=== PATIENT | male | born 1960 | race Caucasian/White ===

== ENCOUNTER → 2017-04-22 | Outpatient (CLI) | payer BC ==
[~2017-04-22] MED LIST: ALPR0.5T PO; CYAN100053 IJ; ENAL1TAB19 PO; ENLP10T PO; HYDR-3714 PO; OXC5T PO; TESTOSTERONE CMPD TOP
== END ==
LOC: CARD 06:52
PROVIDERS: ATTEND Internal Medicine
DX: R53.83 Other fatigue (principal)

== ENCOUNTER 2017-07-26 01:00 | Outpatient (CLI) | payer BC ==
[~2017-07-26] VITALS: Ht 175.3 cm; Wt 81.2 kg
[2017-07-26] MEDS ORDERED: LOSA100T28 PO (09:52)
[2017-07-26] MEDS ORDERED: ZALE10CA PO (09:52)
[2017-07-26] MEDS ORDERED: CETI10TA17 PO (09:52)
[2017-07-26] MEDS ORDERED: AMLO2.5T PO (09:52)
== END 2017-07-26 13:07 ==
LOC: PREOP 01:00
PROVIDERS: ATTEND Surgery
DX: Z01.818 Encounter for other preprocedural examination (principal); K21.9 Gastro-esophageal reflux disease without esophagitis; K92.1 Melena

== ENCOUNTER 2017-07-31 09:05 | Day surgery (SDC) | payer BC ==
[~2017-07-31] VITALS: Ht 175.3 cm; Wt 81.2 kg
[~2017-07-31 09:05] MED LIST changes: +AMLO2.5T PO; +CETI10TA17 PO; +LOSA100T28 PO; +ZALE10CA PO
--- OUTSIDE RECORDS SUMMARY | 2017-07-31 09:08 | XMS REPORT | Continuity of Care Document ---
Author Author [facility] Organization [facility] Address Unknown Phone Unavailable Allergies Active Description Code Type Severity Reaction Onset Reported/Identified Relationship to Patient Clinical Status Yes oxycodone [id number] Drug Allergy Mild ITCHING IF TAKE 05/12/2014 Yes ciprofloxacin [id number] Drug Allergy Unknown VOMITING 07/15/2014 Yes Penicillins [id number] Drug Allergy Unknown RASH 07/15/2014 Medications There is no data. Problems Date Dx Coded Attending Type Code Diagnosis Diagnosed By 05/21/2014 RAJEEV POTTER DPM Ot 355.6 PLANTAR NERVE LESION 05/21/2014 RAJEEV POTTER DPM Ot 735.8 ACQ DEFORMITY OF TOE NEC 07/23/2014 NAHUM CORNEJO SOCIOLOGY RESEARCH ASSISTANT Ot 401.9 07/23/2014 NAHUM CORNEJO SOCIOLOGY RESEARCH ASSISTANT Ot 729.5 07/23/2014 ABBEY DPRAJEEV Duarte Ot 355.6 07/23/2014 RAJEEV POTTER DPM Ot 735.8 07/23/2014 RAJEEV POTTER DPM Ot V72.84 07/23/2014 RAJEEV POTTER DPM Ot 355.6 07/23/2014 RAJEEV POTTER DPM Ot 735.8 07/23/2014 RAJEEV POTTER DPM P Ot V72.83 07/23/2014 RAJEEV POTTER DPM P Ot 355.6 PLANTAR NERVE LESION 07/23/2014 RAJEEV POTTER DPM P Ot 735.8 ACQ DEFORMITY OF TOE NEC 04/18/2017 NAHUM CORNEJO SOCIOLOGY RESEARCH ASSISTANT Ot 401.9 HYPERTENSION NOS 04/18/2017 NAHUM CORNEJO SOCIOLOGY RESEARCH ASSISTANT Ot 729.5 PAIN IN LIMB 04/18/2017 ABBEY DPRAJEEV Duarte Ot 355.6 PLANTAR NERVE LESION 04/18/2017 ABBEY DPRAJEEV Duarte P Ot 735.8 ACQ DEFORMITY OF TOE NEC 04/18/2017 POTTER DPM, RAJEEV P Ot V72.84 EXAM PRE-OPERATIVE NOS 04/18/2017 POTTER DPM, RAJEEV P Ot 355.6 PLANTAR NERVE LESION 04/18/2017 POTTER DPM, RAJEEV P Ot 735.8 ACQ DEFORMITY OF TOE NEC 04/18/2017 POTTER DPM, RAJEEV P Ot V72.83 EXAM PRE-OPERATIVE NEC 04/18/2017 NAHUM CORNEJO SOCIOLOGY RESEARCH ASSISTANT Ot 401.9 HYPERTENSION NOS 04/18/2017 CORNEJONAHUM KRUSE SOCIOLOGY RESEARCH ASSISTANT Ot 729.5 PAIN IN LIMB 04/18/2017 POTTER DPM, RAJEEV P Ot 355.6 PLANTAR NERVE LESION 04/18/2017 POTTER DPM, RAJEEV P Ot 735.8 ACQ DEFORMITY OF TOE NEC 04/18/2017 POTTER DPM, RAJEEV P Ot V72.84 EXAM PRE-OPERATIVE NOS 04/18/2017 POTTER DPM, RAJEEV P Ot 355.6 PLANTAR NERVE LESION 04/18/2017 POTTER DPM, RAJEEV P Ot 735.8 ACQ DEFORMITY OF TOE NEC 04/18/2017 POTTER DPM, RAJEEV P Ot V72.83 EXAM PRE-OPERATIVE NEC 04/19/2017 NAHUM CORNEJO SOCIOLOGY RESEARCH ASSISTANT Ot 401.9 HYPERTENSION NOS 04/19/2017 CORNEJONAHUM KRUSE SOCIOLOGY RESEARCH ASSISTANT Ot 729.5 PAIN IN LIMB 04/19/2017 POTTER DPM, RAJEEV P Ot 355.6 PLANTAR NERVE LESION 04/19/2017 POTTER DPM, RAJEEV P Ot 735.8 ACQ DEFORMITY OF TOE NEC 04/19/2017 POTTER DPM, RAJEEV P Ot V72.84 EXAM PRE-OPERATIVE NOS 04/19/2017 POTTER DPM, RAJEEV P Ot 355.6 PLANTAR NERVE LESION 04/19/2017 POTTER DPM, RAJEEV P Ot 735.8 ACQ DEFORMITY OF TOE NEC 04/19/2017 POTTER DPM, RAJEEV P Ot V72.83 EXAM PRE-OPERATIVE NEC 04/24/2017 JOCELYN CORNEJO DO Ot R53.83 OTHER FATIGUE Procedures There is no data. Results There is no data. Encounters ACCT No. Visit Date/Time Discharge Status Pt. Type Provider Facility Loc./Unit Complaint [id number] 04/22/2017 06:52:00 04/22/2017 23:59:59 CLS Outpatient JOCELYN CORNEJO DO [facility] CARD R53.83 [id number] 07/23/2014 06:07:00 07/23/2014 12:00:00 DIS Outpatient RAJEEV POTTER DPM [facility] HALLUX LIMIT; NEUROMA THIRD INTERSPACE RIGHT FOOT [id number] 07/15/2014 08:00:00 07/15/2014 23:59:59 CLS Outpatient RAJEEV POTTER DPM [facility]; NEUROMA THIRD INTERSPACE RIGHT FOOT [id number] 05/21/2014 06:12:00 05/21/2014 11:20:00 DIS Outpatient RAJEEV POTTER DPM [facility] HALLUX LIMIT; NEUROMA THIRD INTERSPACE LEFT FOOT [id number] 05/12/2014 10:39:00 05/12/2014 23:59:59 CLS Outpatient RAJEEV POTTER DPM [facility] LIMIT; NEUROMA THIRD INTERSPACE LEFT FOOT [id number] 08/25/2013 06:58:00 08/25/2013 23:59:59 CLS Outpatient NAHUM CORNEJO [facility] RAD HTN,LEFT ARM PAIN
--- OUTSIDE RECORDS SUMMARY | 2017-07-31 09:08 | XMS REPORT | Clinical Summary ---
Author Author [facility] Organization [facility] Address Unknown Phone Unavailable Care Team Providers Care Appointment Manager Name Role Phone PCP Unavailable Source Comments Some departments are not documenting in the electronic medical record. If you do not see the information that you expected, contact Release of Information in the Health Information Management department at [phone] for further assistance in locating additional records.[facility] Allergies Active Allergy Reactions Severity Noted Date Comments Ciprofloxacin DELUSIONS High 08/22/2011 Hallucinations Morphine AGITATION High 08/22/2011 " makes me crazy" Penicillins EDEMA Low 08/13/2011 Lips swell Current Medications Prescription Sig. Disp. Refills Start End Date Status Date finasteride (PROPECIA) 1 Take 1 mg by mouth daily. Active mg tablet enalapril (VASOTEC) 5 mg Take 5 mg by mouth daily. Active tablet ALPRAZolam (XANAX) 1 mg Take 1 mg by mouth at Active tablet bedtime as needed. vitamin E 100 unit Cap Take 100 Units by mouth Active daily. Potassium 99 mg Tab Take 1 Tab by mouth Active daily. vitamins, multiple Cap Take 1 Cap by mouth Active daily. HYDROcodone/acetaminophen Take 1-2 Tabs by mouth 40 Tab 0 08/23/19 Active (VICODIN) 5/500 mg tablet every 6 hours as needed 12 for Pain. docusate (COLACE) 100 mg Take 1 Cap by mouth twice 60 Cap 2 08/23/19 Active capsule daily. 12 Active Problems Not on file Family History Medical History Relation Name Comments Cancer Father Pancreatic CA Relation Name Status Comments Father Mother Alive Social History Tobacco Use Types Packs/Day Years Used Date Former Smoker Cigarettes 0.25 5 Quit: 08/05/1998 Alcohol Use Drinks/Week oz/Week Comments Yes 4 Cans of 2.4 beer Sex Assigned at Date Recorded Not on file Last Filed Vital Signs Vital Sign Reading Time Taken Blood Pressure 128/92 08/23/2011 9:18 AM STEREO OPERATOR Pulse 70 08/23/2011 9:18 AM STEREO OPERATOR Temperature 36.9 C (98.4 F) 08/23/2011 9:18 AM STEREO OPERATOR Respiratory Rate - - Oxygen Saturation 99% 08/23/2011 9:18 AM STEREO OPERATOR Inhaled Oxygen - - Concentration Weight 78 kg (172 lb) 08/22/2011 9:15 AM STEREO OPERATOR Height 175.3 cm (5' 9") 08/22/2011 9:15 AM STEREO OPERATOR Body Mass Index 25.4 08/22/2011 9:15 AM STEREO OPERATOR Plan of Treatment Health Maintenance Due Date Last Done Comments HEPATITIS C SCREENING 1962 PHYSICAL (COMPREHENSIVE) 1969 EXAM PERTUSSIS VACCINE 1973 TETANUS VACCINE 1979 COLORECTAL CANCER 2012 SCREENING INFLUENZA VACCINE 03/05/2017 Results Not on filefrom Last 3 Months
[2017-07-31] MEDS ORDERED: NS IV 500 ML 500 ML IV PRN (09:10)
[2017-07-31 09:15] VITALS: BP 121/81
[2017-07-31] MEDS ORDERED: HURRICAINE EXT TUBE (BENZOCAINE) XX PRN (09:30)
[2017-07-31] MEDS ORDERED: NS IV 500 ML 500 ML ONE (09:35)
--- NOTE | 2017-07-31 11:37 | Conscious Sedation/ASA ---
Conscious Sedation Pre-Proced Time Reviewed: 11:00 ASA Class: 2 Airway Mallampati Classification: ([place] appropriate class) I. II. III, IV Lungs Heart ASA score ASA 1: a normal healthy patient ASA 2: a patient with a mild systemic disease (mid diabetes, controlled hypertension, obesity ASA 3: a patient with a severe systemic disease that limits activity (angina , COPD, prior Myocardial infarction) ASA 4: a patient with an incapacitating disease that is a constant threat to life (CHF, renal failure) ASA 5: a moribund patient not expected to survive 24 hrs. (ruptured aneurysm) ASA 6: a declared brain patient whose organs are being harvested. For emergent operations, add the letter E after the classification Grade 2 Sedation Plan: Analgesia, Amnesia, Plan communicated to team members, Discussed options with patient/fam, Discussed risks with patient/fam Note The patient is an appropriate candidate to undergo the planned procedure, sedation, and anesthesia. The patient immediately re-assessed prior to indication. FEDE SANTILLAN MD Jul 31, 2017 11:37 am
[2017-07-31] MEDS ORDERED: LIDOCAINE JELLY 2% (XYLOCAINE) 5 ML TUBE ONE (11:38)
[2017-07-31] MEDS ORDERED: fentaNYL INJECTION 100 MCG/2 ML AMP ONE ×2 (11:38)
--- NOTE | 2017-07-31 11:38 | Progress Note-Pre Operative ---
Pre-Operative Progress Note H&P Reviewed The H&P was reviewed, patient examined and no changes noted. Date Seen by Provider: Jul 31, 2017 Time Seen by Provider: 11:00 Date H&P Reviewed: Jul 31, 2017 Time H&P Reviewed: 11:00 Pre-Operative Diagnosis: rectal bleed, GERD FEDE SANTILLAN MD Jul 31, 2017 11:38 am
[2017-07-31] MEDS ORDERED: MIDAZOLAM 2 MG/2 ML (VERSED) VIAL ONE ×7 (11:39→12:12)
[2017-07-31] MEDS ORDERED: HURRICAINE EXT TUBE (BENZOCAINE) ONE (11:39)
[2017-07-31] MEDS: fentaNYL INJECTION 100 MCG/2 ML AMP IVP PRN ×4 (11:41→12:25)
[2017-07-31] MEDS ORDERED: PANT40TA2 PO (11:45)
[2017-07-31] MEDS ORDERED: ACETAMINOPHEN 325 MG TABLET/CAPLET (TYLENOL) PO PRN (11:45)
[2017-07-31] MEDS ORDERED: HYDROcodone/APAP 5 MG/325 MG (LORTAB) TAB PO PRN (11:45)
[2017-07-31] MEDS ORDERED: morphine INJ 10 MG/ML 1ML (SYR OR VIAL) IV PRN (11:45)
[2017-07-31] MEDS ORDERED: ONDANSETRON 4 MG/2 ML (SDV) Z0FRAN IV PRN (11:45)
--- NOTE | 2017-07-31 11:46 | Discharge Inst-Surgical ---
D/C Lap Instructions-KIDO New, Converted, or Re-Newed RX: RX on Chart Follow Up PRN Activity as tolerated High Fiber Diet 25g or more per day Avoid Alcohol, Caffeine, Spicy [place] and Acid foods. Drink 64 fluid oz or more of fluids per day. Symptoms to Report: Fever over 101 degree F, Nausea/Vomiting If any problems/questions: Contact your physician or go to Emergency Room FEDE SANTILLAN MD Jul 31, 2017 11:46 am
[2017-07-31] MEDS: MIDAZOLAM 2 MG/2 ML (VERSED) VIAL IVP PRN ×7 (11:53→12:27)
[2017-07-31] MEDS: LIDOCAINE JELLY 2% (XYLOCAINE) 5 ML TUBE MM PRN ×2 (11:58→12:20)
--- NOTE | 2017-07-31 12:56 | Progress Note-Post Operative ---
Post-Operative Progess Note Surgeon (s)/Outdoor Adventure Instructor (s) Surgeon FEDE SANTILLAN MD Outdoor Adventure Instructor: none Pre-Operative Diagnosis rectal bleed, GERD Post-Operative Diagnosis reflux esophagitis(class B-C), small HH(2cm), moderate gastritis. chronic stage 2-3 ext and int hemorrhoids, small HP polyp desc colon. Procedure & Operative Findings Date of Procedure 07/31/17 Procedure Performed/Findings EGD with bx. Colonoscopy with bx. Anesthesia Type CS Estimated Blood Loss Estimated blood loss (mL): minimal Specimens/Packing Specimens Removed GE jxn, antrum, desc colon polyp. FEDE SANTILLNA MD Jul 31, 2017 12:56 pm
[2017-07-31 13:05] VITALS: BP 111/71
[2017-07-31 13:35] VITALS: BP 129/86
[2017-07-31 13:40] VITALS: BP 111/71
--- NOTE | 2017-07-31 20:49 | OPERATIVE REPORT ---
DATE OF SERVICE: 07/31/2017 ATTENDING PRIMARY CARE PHYSICIAN: Dr. Leung. PREOPERATIVE DIAGNOSES: Gastroesophageal reflux disease, rectal bleeding and history of colon polyp. POSTOPERATIVE DIAGNOSES: Reflux esophagitis between class B and C, small hiatal hernia approximately 2 cm in size, a moderate severity gastritis and no active bleeding. Pylorus and duodenum normal. Chronic stage between stage II and III external and internal hemorrhoids with no current edema or bleeding. Prostate gland was palpable and normal, small hyperplastic of the descending colon. PROCEDURES: EGD with biopsy and colonoscopy with biopsy. SURGEON: Dr. Fede Santillan. ANESTHESIA: Conscious sedation. ESTIMATED BLOOD LOSS: Minimal. FINDINGS: EGD reflux esophagitis between class B and C, small hiatal hernia approximately 2 cm in size, moderate severity gastritis with superficial erosions, no formal ulcers, polyps or any neoplasm. Pylorus and duodenum appeared normal with no distal obstructions. Colonoscopy chronic stage between stage II and III external and internal hemorrhoids with no active edema or bleeding. Prostate gland was palpable and appeared normal. There was a small hyperplastic polyp of the descending colon 2 mm in size. The remainder of the colon was normal. DISPOSITION: The patient tolerated the procedure well. INDICATIONS: The patient is a 56-year-old male with rectal bleeding. He states that he had a colonoscopy 5 years ago and does remember having polyps which were benign. He reports intermittent episodes of blood per rectum mixed with the stools. He also reports mild pruritus on an intermittent basis. He also reports that he has had a long-standing history of gastroesophageal reflux disease, which has been under control for the most half with diet; however, this has worsened in the recent year. DESCRIPTION OF PROCEDURE: The patient was brought to the endoscopy suite, laid in the left lateral decubitus position with the head slightly elevated. After adequate IV pain and sedating medications and conscious sedation anesthesia, the mouthpiece was applied. The endoscope was placed in the mouth, visualizing the pharynx and hypopharyngeal region. Vocal cords, epiglottis and vallecula identified and appeared to be normal. Endoscope was then gently intubated in the esophageal opening esophagus insufflated. Endoscope was then advanced through the first, second and third portions of the esophagus. At the level of the GE junction, a significant reflux esophagitis between class B and C identified. There were no ulcers or strictures. A biopsy was taken using forceps with visualization of good hemostasis. The endoscope was then easily advanced in the stomach and then endoscope retroflexed, visualizing a small hiatal hernia approximately 2 cm in size. There was a moderate severity of gastritis with mild superficial erosions of the antrum. No active bleeding identified. A biopsy was taken of the antrum with forceps with visualization of good hemostasis. The endoscope was then advanced to the pylorus in the first and second portions of the duodenum which appeared normal. The endoscope was then slowly withdrawn while taking a second look and suctioning of residual air with no additional findings. The patient tolerated this portion of the procedure well. We will recommend the necessary lifestyle and diet accommodation including small and more frequent meals, avoidance of eating at night as well as head elevation while lying supine. He also needs to avoid caffeinated beverages, spicy, greasy and acidic foods. He has hydrocodone with acetaminophen on a daily basis for his fibromyalgia, which most likely is the underlying etiology. We will start him on Protonix 40 mg daily as well as recommendation of eating some foods with medications. We will also await the biopsy results. Under the same conscious sedation anesthesia, we then proceeded with the colonoscopy portion of the procedure. A digital rectal examination was performed which revealed chronic stage between stage II and III external and internal hemorrhoids, not actively edematous nor inflamed and no bleeding. Normal sphincter tone was felt and there were no palpable masses. Prostate gland was palpable and appeared normal. The endoscope was then intubated to the anus and the rectum gently insufflated. The endoscope was then advanced to the valves of [place] of the rectum with no polyps or any neoplasms identified. We then proceeded through the sigmoid colon where a mild sigmoid diverticulosis identified. At the level of the descending colon, a small hyperplastic polyp approximately 2 cm in size was identified. This was biopsied and destroyed using forceps and electrocautery with visualization of good hemostasis. The endoscope was then advanced to the remainder of the descending, transverse, ascending colon and the cecum. These segments were normal. The endoscope was then slowly withdrawn taking a second look and suctioning of residual air with no additional findings. The patient tolerated the procedure well. We will recommend the necessary lifestyle and diet accommodation including small and more frequent meals, avoidance of eating at night as well as head elevation while lying supine. He also needs to incorporate the high fiber diet with at least 30 grams of fiber per day as well as at least 64 fluid ounces of water to promote soft stools on a daily basis. We will await the biopsy results; however, this appears to be a hyperplastic polyp and if confirmed by pathology, he may wait another 10 years for his next colonoscopy. Job ID: [id number] DocumentID: [id number] Dictated Date: 07/31/2017 12:50:40 Wrapper Cashier Date: 07/31/2017 20:07:19 Dictated By: FEDE SANTILLAN MD
== END 2017-07-31 13:45 | disposition home or self-care (01) ==
LOC: ENDO 09:05
PROVIDERS: ATTEND Surgery
DX: K21.0 Gastro-esophageal reflux disease with esophagitis (principal); D12.4 Benign neoplasm of descending colon; K44.9 Diaphragmatic hernia without obstruction or gangrene; K29.60 Other gastritis without bleeding; K64.2 Third degree hemorrhoids; K57.30 Diverticulosis of large intestine without perforation or abscess without bleeding; M79.7 Fibromyalgia; I10 Essential (primary) hypertension; G47.00 Insomnia, unspecified; Z79.899 Other long term (current) drug therapy; Z88.1 Allergy status to other antibiotic agents; Z87.891 Personal history of nicotine dependence
CPT/HCPCS: 88305; 88312

== ENCOUNTER → 2018-02-07 | Outpatient (CLI) | payer BC ==
[~2018-02-07] MED LIST changes: +CATHETER FLUSH 10 ML SYR IV PRN; +PANT40TA2 PO
[2018-02-07 08:15] VITALS: BP 133/88
--- NOTE | 2018-02-07 19:59 | STRESS TEST ---
DATE OF SERVICE: 02/07/2018 RESTING AND POST EXERCISE TECHNETIUM-99M TETROFOSMIN SPECT CT IMAGING ORDERING PHYSICIAN: Dr. Leung. PRIMARY PHYSICIAN: Dr. Leung. CLINICAL DIAGNOSIS: Chest pain. Baseline images were carried out after injection of 10.16 mCi of technetium-99m Tetrofosmin. This was followed by exercise on a treadmill. The exercise part of the study was carried out under Dr. Leung's supervision and this part of the study is reported separately by him. After the patient had attained approximately 80% of maximum predicted heart rate, 29.6 mCi of technetium-99m Tetrofosmin were injected and the exercise was continued for more than another minute. Review of images at rest and following stress does not indicate significant perfusion defects consistent with significant myocardial ischemia or infarction. Gated images showed normal global left ventricular systolic function and normal regional wall motion. Left ventricular ejection fraction is calculated to be approximately 53%. Left ventricular end-diastolic volume is 73 mL. TID is absent (0.96). CONCLUSIONS: 1. No evidence of myocardial ischemia to approximately 80% of maximum predicted heart rate. 2. No evidence of myocardial infarction. 3. Normal global left ventricular systolic function with a calculated ejection fraction of 53%. 4. Normal left ventricular cavity size. Job ID: [id number] DocumentID: [id number] Dictated Date: 02/07/2018 16:18:09 Experimental Display Builder Date: 02/07/2018 19:58:39 Dictated By: DANITA WALTERS MD, MA, FACP, FACC,
== END ==
LOC: CARD 07:12
PROVIDERS: ATTEND Internal Medicine
DX: R07.9 Chest pain, unspecified (principal)
CPT/HCPCS: 78452; 93017